=== PATIENT | male | born 1950 ===

== ENCOUNTER 2025-01-29 23:32 | Emergency (ER) | payer MEDICARE ==
[~2025-01-29] VITALS: Ht 187.9 cm; Wt 80.3 kg
[2025-01-30 00:51] LABS: BASO # 0.0 10*3/uL (0.0-0.1); BASO % 0.2 % (0.0-1.0); EOS # 0.1 10*3/uL (0.0-0.4); EOS % 0.7 % (1.0-4.0); MEAN CELL VOLUME 90.8 fl (80.0-94.0); MEAN CORPUSCULAR HGB 28.5 pg (27.0-31.0); MEAN PLATELET VOLUME 10.1 fl (9.6-12.3); MONO # 0.7 10*3/uL (0.1-1.0); MONO % 8.1 % (3.0-9.0); NEUT # 6.5 10*3/uL (2.3-7.9); NEUT % 79.7 % (47.0-73.0); NUCLEATED RED BLOOD CELL 0.0 % (0.0-0.0); NUCLEATED RED BLOOD CELL 0.0 10*3/uL (0.0-0.0); PLATELET COUNT AUTOMATED 231 10*3/uL (130-400); RED CELL DISTRI WIDTH 13.2 % (0-14.5)
[2025-01-30] MEDS ORDERED: SODIUM CHLORIDE 0.9% 1,000 ML IV ONE ×4 (01:02→03:04)
[2025-01-30 01:11] LABS: BUN 14 mg/dl (9-23)
[2025-01-30 02:59] VITALS: BP 112/46
[2025-01-30 03:27] VITALS: BP 121/50
[2025-01-30] MEDS ORDERED: LISINOPRIL5 MG PO (03:28)
[2025-01-30] MEDS ORDERED: LIPITOR40 MG PO (03:29)
[2025-01-30] MEDS ORDERED: XARE20MG PO (03:29)
[2025-01-30] MEDS ORDERED: ASPIRIN ADULT L81 M1 PO (03:30)
[2025-01-30] MEDS ORDERED: PERCOCET 5-3251 EACH PO (03:32)
[2025-01-30] MEDS ORDERED: NAPROSYN500 MG PO (03:35)
[2025-01-30 03:57] LABS: SGPT/ALT 21.0 U/L (5-49)
[2025-01-30] MEDS ORDERED: SODIUM CHLORIDE 0.9% 500 ML IV ONE (05:01)
== END 2025-01-30 05:25 | disposition short-term general hospital (02) ==
LOC: ED 23:32
PROVIDERS: Emergency Medicine
DX: K62.5 Hemorrhage of anus and rectum (principal); K51.00 Ulcerative (chronic) pancolitis without complications